=== PATIENT | female | born 1970 | race Caucasian/White ===

== ENCOUNTER → 2016-11-27 | Outpatient (CLI) | payer OTHER ==
[~2016-11-27] MED LIST: /BACL20TA; /BACL20TA OR; AMIT100T; AMIT100T OR; AMOX500C OR; BUPIVACAINE HCL 0.25% 30 ML VIAL As Ordered ONE; BUSP15TA; BUSP30TA OR; COLA100C PO; DILA100C; DILA100C OR; DILA100C PO; ECOT325T5; ECOT325T5 OR; EMLA TOP; EMLA2.5C EXT; EPI PEN; EPIP0.3I; EPIP0.3I IM; ISOS10TA2; ISOS40TA OR; ISOSORBIDE DINITRATE PO; ISOVUE-M 300 61% 15ML VIAL (Q9967) As Ordered ONE; LASI40TA PO; LIDO1DIS2 TD; LIDOCAINE 1% SDV INJ 30 ML VIAL As Ordered ONE; LIPI20TA PO; METH10TA2; METH10TA2 OR; METO50TA4 OR; METROPROLOL; MOM30SS PO; MS C15TA5; MS C15TA5 PO; NITR0.4S; NITR0.4S SL; NORT25CA2 OR; OXYC10TA56; OXYC10TA56 OR; OXYC15TA11 PO; OXYCPOW PO; PLAV75TA2; PLAV75TA2 OR; PROTPAK PO; PROZ10CA OR; ROSU10TA; ROSU10TA OR; SENO8.6T10 PO; SIMV40TA2 PO; SOMA350T; SOMA350T OR; TESS100C PO; TRIAMCINOLONE ACETONIDE SUSP 40 MG/ML VIAL (J3301) As Ordered ONE; nasal spray
--- NOTE | 2016-11-27 10:41 | REP ---
SI JOINT SERIES: Two views. HISTORY: Bilateral SI joint injection for pain. 20 seconds of fluoroscopy time is reported. FINDINGS: A sequence of two fluoroscopically obtained intraprocedural spot radiographs of the SI joints document needle position for SI joint injection procedure. Signed by Armando Taylor MD 11/27/2016 12:31 P
--- NOTE | 2016-12-03 00:01 | ECWPNPC ---
PATIENT NAME: ANGELA POLO : 1970 GENDER: FEMALE VISIT DATE: 11/27/2016 DISCHARGE DATE: 11/27/16 1033 VISIT LOCKED DATE TIME: PHYSICIAN: MADHURI SCHULTZ RESOURCE: MADHURI SCHULTZ REASON FOR APPOINTMENT 1. RIGHT SIJ CURRENT MEDICATIONS TAKING EPIPEN 0.3 MG/0.3ML (1:1000) DEVICE NEEDED INTRAMUSCULAR 1 TIME NEEDED, NOTES: YEARS AGO TAKING BACTROBAN 2 % OINTMENT 1 APPLICATION TO AFFECTED AREA EXTERNALLY 3 TIMES A DAY NEEDED, NOTES: MONTH AGO TAKING TOPIRAMATE 50 MG TABLET 1 TABLET AT BEDTIME ORALLY ONCE A DAY, NOTES: 2129 TAKING AMITRIPTYLINE HCL 150 MG TABLET 1 TABLET ORALLY AT BEDTIME, NOTES: 11/26/162129 TAKING ASPIRIN 325 MG 325 MG TABLET 1 TABLET ORALLY ONCE A DAY (DR. BYRD), NOTES: 11/26/16729 TAKING NITROSTAT 0.[address] BYRD 1 TABLET UNDER THE TONGUE SUBLINGUAL EVERY 5 MINUTES NOT TO EXCEED 3 TIMES (DR. BYRD), NOTES: NONE RECENTLY TAKING LASIX 40 MG TABLET 1 TABLET ORALLY ONCE A DAY, NOTES: 11/26/16729 TAKING ATORVASTATIN CALCIUM 40 MG TABLET 1 TABLET ORALLY ONCE A DAY, NOTES: 11/26/16729 TAKING BACLOFEN 20 MG (PAIN CENTER) TABLET 1 TABLET WITH FOOD OR MILK ORALLY FOUR TIMES A DAY NEEDED, NOTES: 11/26/162129 TAKING METHADONE HCL 10 MG TABLET 1 TABLET ORALLY Q6H MDD4 CHRONIC PAIN, NOTES: 11/27/16729 TAKING MORPHINE SULFATE 15 MG TABLET 1 TABLET ORALLY DAILY MDD1, NOTES: 11/27/16729 TAKING OXYCODONE HCL 15 MG TABLET 1 TAB(S) ORALLY Q4H PRN MDD5, NOTES: 729 TAKING METOPROLOL TARTRATE 100 MG 1 1 TABLET ORALLY ONCE A DAY, NOTES: 11/26/16729 TAKING DILANTIN 100 MG CAPSULE 2 CAPSULES ORALLY TWICE A DAY, NOTES: 11/26/162129 TAKING FLUOXETINE 20 MG CAPSULE 2 CAPSULE IN THE MORNING ORALLY ONCE A DAY, NOTES: 11/26/16729 TAKING BUSPAR 30 MG TABLET 1 TABLET BY MOUTH TWICE A DAY, NOTES: 11/26/162129 NOT-TAKING VALIUM 5 MG TABLET 2 TABLET ORALLY TAKE ON ARRIVAL TO CLINIC FOR PROCEDURE NOT-TAKING PROMETHAZINE HCL 25 MG TABLET 1 TABLET ORALLY EVERY 8 HRS PRN NAUSEA NOT-TAKING ZOLPIDEM TARTRATE 10 MG TABLET 1 TABLET AT BEDTIME NEEDED ORALLY ONCE A DAY MEDICATION LIST REVIEWED AND RECONCILED WITH THE PATIENT PAST MEDICAL HISTORY SEIZURE DISORDER HYPERCHOLESTEROLEMIA MIGRAINES HYPERTENSION BACK PAIN CARDIAC STENTS MAJOR DEPRESSION PAL ON CPAP ALLERGIES CONTRAST MEDIA: NAUSEA/VOMITING: SIDE EFFECTS ETHYLALCOHOL: SKIN IRRITATION: SIDE EFFECTS LACTOSE INTOLERANT: TONGUE SWELLING AND DIARRHEA: ALLERGY KETOROLAC: COMING OUT OF SKIN: SIDE EFFECTS ZYVOX: VOMITING, ELEV TEMP: SIDE EFFECTS SURGICAL HISTORY LEFT CARPAL TUNNEL 2003 PARTIAL HYSTERECTOMY 2005 LAPAROSCOPY 1980S TONSILLECTOMY 1986 STENT X 1 CARDIAC 2008 STENT X 4 CARDIAC 2010 RIGHT CARPAL TUNNEL AND TRIGGER RELEASE 11/20/[address] T[address] OVALLE 2012 HOSPITALIZATION/MAJOR DIAGNOSTIC PROCEDURE PANCREATITIS 2006 SURGERIES VITAL SIGNS WT 172.8 LBS, HT 63 IN, BMI 30.61 INDEX, BP 127/63 MM HG, HR 55 /MIN, RR 16 /MIN, TEMP 95.6 F, OXYGEN SAT % 97%, NA INITIALS SC 09:08, REVIEWED BY: CHACORTA. ASSESSMENTS SACROILIITIS, NOT ELSEWHERE CLASSIFIED - M46.1 (PRIMARY) PROCEDURES PN SI PRE PROCEDURE DIAGNOSIS SACROILIITIS, SACROILIAC JOINT DYSFUNCTION POST PROCEDURE DIAGNOSIS SACROILIITIS, SACROILIAC JOINT DYSFUNCTION PROCEDURE ., BILATERAL SACROILIAC JOINT BLOCK SURGEON DR. MADHURI SCHULTZ WHIRLEY OPERATOR NONE ANESTHESIA LOCAL PRE PROCEDURE NOTE PATIENT WITH HISTORY OF CHRONIC LOW BACK PAIN. I EVALUATED THE PATIENT AND REVIEWED THE CHART. I WENT OVER THE RISKS, ALTERNATIVES, AND BENEFITS ASSOCIATED WITH THIS PROCEDURE. THE PATIENT WOULD LIKE TO PROCEED AND GAVE CONSENT TO PERFORM THE PROCEDURE. THE PATIENT DENIES UNEXPLAINABLE WEIGHT LOSS, FEVER, CHILLS, OR NEW CHANGES IN URINARY OR BOWEL CONTROL DESCRIPTION OF PROCEDURE THE PATIENT WAS BROUGHT TO THE PROCEDURE ROOM AND PLACED IN THE PRONE POSITION. THE LUMBOSACRAL AREA WAS CLEANED WITH CHLORAPREP SOLUTION AND DRAPED ASEPTICALLY. THE PROCEDURE WAS DONE UNDER STERILE CONDITIONS. I CHECKED LATERALITY AND THE LEVEL WHERE THE PROCEDURE WAS GOING TO BE PERFORMED WITH THE PATIENT AND THE SUPPORTING STAFF AT THE MOMENT OF THE TIME OUT IN THE PROCEDURE ROOM. UNDER FLUOROSCOPIC GUIDANCE, TARGET POINT WAS SELECTED AT THE LOWER BORDER OF THE RIGHT AND LEFT SACROILIAC JOINT. TARGET POINT WAS SELECTED AFTER MEDIAL ROTATION AND TILT OF THE MAGNIFIER OF THE C-ARM. LIDOCAINE WAS USED TO NUMB THE SKIN AND SUBCUTANEOUS TISSUE BELOW IT. A SPINAL NEEDLE, 22-GAUGE, WAS ADVANCED UNDER FLUOROSCOPIC GUIDANCE AND FOLLOWING PATIENT FEEDBACK UNTIL THE TARGET AREA WAS TOUCHED. THE POSITION OF THE NEEDLE WAS VERIFIED WITH AP AND LATERAL VIEWS. AFTER PROPER POSITION OF THE NEEDLE WAS ACHIEVED, ISOVUE M DYE 30%, 0.25 ML, WAS INJECTED SHOWING SPREAD OF THE DYE. THEN, A SOLUTION OF 20 MG OF KENALOG WAS INJECTED IN RIGHT JOINT WITH 3 ML OF BUPIVACAINE 0.125%. THERE WAS NO EVIDENCE OF BLOOD, PARESTHESIA OR CEREBROSPINAL FLUID DURING THE PROCEDURE. THE PATIENT WAS SENT TO THE RECOVERY ROOM. THE PATIENT WAS MOVING THE EXTREMITIES AND DOING WELL. THERE WAS NO COMPLICATION DURING THE PROCEDURE. FLUOROSCOPY TIME WAS 20 SECONDS POST PROCEDURE NOTE THE PATIENT WILL BE SEEN IN A FOLLOW UP IN THE NEXT FEW WEEKS. INSTRUCTIONS WERE GIVEN, QUESTIONS WERE ANSWERED, AND THE PATIENT EXPRESSED UNDERSTANDING AND AGREED WITH THE PLAN. INSTRUCTIONS WERE GIVEN, QUESTIONS WERE ANSWERED, PATIENT REPORTS UNDERSTANDING AND AGREES WITH THE PLAN. I, TAYLOR KEENE, DOCUMENTED THE ABOVE INFORMATION ACTING A SCRIBE FOR DR. SCHULTZ. I HAVE REVIEWED THE ABOVE DOCUMENT, WRITTEN BY TAYLOR KEENE SCRIBE AND I VERIFY THAT IT IS ACCURATE. DIAGNOSTIC IM[facility] FLUORO GUIDANCE (PAIN)[id number] PROCEDURE CODES 93327 INJECT SACROILIAC JOINT 6045F RADXPS IN END [id number] PXD FOLLOW UP 3 WEEKS ELECTRONICALLY SIGNED BY MADHURI SCHULTZ MD ON 12/02/2016 AT 07:51 PM EST DISCLAIMER : THIS IS A VISIT SUMMARY EXTRACTED FROM THE [employer] CHART. IT IS NOT A COPY OF THE [employer] PROGRESS NOTE. MTDD
== END ==
LOC: M PAIN 09:10
PROVIDERS: ATTEND Anesthesiology
DX: G89.29 Other chronic pain (principal); M46.1 Sacroiliitis, not elsewhere classified; M54.5 Low back pain; Z79.891 Long term (current) use of opiate analgesic; Z79.899 Other long term (current) drug therapy; Z79.82 Long term (current) use of aspirin; Z79.2 Long term (current) use of antibiotics; Z91.041 Radiographic dye allergy status; Z88.1 Allergy status to other antibiotic agents; Z88.8 Allergy status to other drugs, medicaments and biological substances; E73.9 Lactose intolerance, unspecified; G40.89 Other seizures; E78.00 Pure hypercholesterolemia, unspecified; G43.909 Migraine, unspecified, not intractable, without status migrainosus; I10 Essential (primary) hypertension; Z98.890 Other specified postprocedural states; F32.9 Major depressive disorder, single episode, unspecified; G47.30 Sleep apnea, unspecified
CPT/HCPCS: G0260; J3301

== ENCOUNTER → 2016-12-25 | Outpatient (CLI) | payer OTHER ==
[~2016-12-25] MED LIST changes: -BUPIVACAINE HCL 0.25% 30 ML VIAL As Ordered ONE; -ISOVUE-M 300 61% 15ML VIAL (Q9967) As Ordered ONE; -LIDOCAINE 1% SDV INJ 30 ML VIAL As Ordered ONE; -TRIAMCINOLONE ACETONIDE SUSP 40 MG/ML VIAL (J3301) As Ordered ONE
--- NOTE | 2016-12-26 00:59 | ECWPNPC ---
PATIENT NAME: ANGELA POLO : 1970 GENDER: FEMALE VISIT DATE: 12/25/2016 DISCHARGE DATE: 12/25/16 1053 VISIT LOCKED DATE TIME: PHYSICIAN: CHEN FRANCISCO RESOURCE: CHEN FRANCISCO REASON FOR APPOINTMENT 1. POST PROCEDURE, BACK HISTORY OF PRESENT ILLNESS HISTORY OF PRESENT ILLNESS: PAIN THE PATIENT DESCRIBES THE PAIN... FALL RISK SCREENING: SCREENING :NO FALLS IN THE PAST YEAR TODAY'S VISIT: NOTES: RATES PAIN TODAY 06/06. IS S/P BILATERAL SIJ INJECTION ON 11/27/16 WHICH PRODUCED 50-60% PAIN RELIEF FOR 3 WEEKS. STATES SHE WAS DOING WELL UNTIL 12:30 LAST NIGHT. NOTES A THROBBING PAIN ACROSS THE LOW BACK.. CURRENT MEDICATIONS TAKING EPIPEN 0.3 MG/0.3ML (1:1000) DEVICE NEEDED INTRAMUSCULAR 1 TIME NEEDED TAKING BACTROBAN 2 % OINTMENT 1 APPLICATION TO AFFECTED AREA EXTERNALLY 3 TIMES A DAY NEEDED TAKING TOPIRAMATE 50 MG TABLET 1 TABLET AT BEDTIME ORALLY ONCE A DAY TAKING AMITRIPTYLINE HCL 150 MG TABLET 1 TABLET ORALLY AT BEDTIME TAKING ASPIRIN 325 MG 325 MG TABLET 1 TABLET ORALLY ONCE A DAY (DR. BYRD) TAKING NITROSTAT 0.[address] BYRD 1 TABLET UNDER THE TONGUE SUBLINGUAL EVERY 5 MINUTES NOT TO EXCEED 3 TIMES (DR. BYRD) TAKING ATORVASTATIN CALCIUM 40 MG TABLET 1 TABLET ORALLY ONCE A DAY TAKING BACLOFEN 20 MG (PAIN CENTER) TABLET 1 TABLET WITH FOOD OR MILK ORALLY FOUR TIMES A DAY NEEDED TAKING METOPROLOL TARTRATE 100 MG 1 1 TABLET ORALLY ONCE A DAY TAKING DILANTIN 100 MG CAPSULE 2 CAPSULES ORALLY TWICE A DAY TAKING FLUOXETINE 20 MG CAPSULE 2 CAPSULE IN THE MORNING ORALLY ONCE A DAY TAKING BUSPAR 30 MG TABLET 1 TABLET BY MOUTH TWICE A DAY TAKING LASIX 40 MG TABLET 1 TABLET ORALLY ONCE A DAY TAKING METHADONE HCL 10 MG TABLET 1 TABLET ORALLY Q6H MDD4 CHRONIC PAIN TAKING MORPHINE SULFATE 15 MG TABLET 1 TABLET ORALLY DAILY MDD1 TAKING OXYCODONE HCL 15 MG TABLET 1 TAB(S) ORALLY Q4H PRN MDD5 NOT-TAKING VALIUM 5 MG TABLET 2 TABLET ORALLY TAKE ON ARRIVAL TO CLINIC FOR PROCEDURE NOT-TAKING PROMETHAZINE HCL 25 MG TABLET 1 TABLET ORALLY EVERY 8 HRS PRN NAUSEA NOT-TAKING ZOLPIDEM TARTRATE 10 MG TABLET 1 TABLET AT BEDTIME NEEDED ORALLY ONCE A DAY MEDICATION LIST REVIEWED AND RECONCILED WITH THE PATIENT PAST MEDICAL HISTORY SEIZURE DISORDER HYPERCHOLESTEROLEMIA MIGRAINES HYPERTENSION BACK PAIN CARDIAC STENTS MAJOR DEPRESSION PAL ON CPAP ALLERGIES CONTRAST MEDIA: NAUSEA/VOMITING: SIDE EFFECTS ETHYLALCOHOL: SKIN IRRITATION: SIDE EFFECTS LACTOSE INTOLERANT: TONGUE SWELLING AND DIARRHEA: ALLERGY KETOROLAC: COMING OUT OF SKIN: SIDE EFFECTS ZYVOX: VOMITING, ELEV TEMP: SIDE EFFECTS SOCIAL HISTORY GENERAL: TOBACCO USE ARE YOU A:NONSMOKER LEARNING BARRIERS / SPECIAL NEEDS ORIENTED TO PLAN OF CARE: PATIENT, PAIN MANAGEMENT PATIENT, ORIENTED TO PLAN OF CARE: PATIENT, PAIN MANAGEMENT PATIENT. NEW PATIENT PAIN DIARY TODAY'S VISITNOTES FROM 0-10, WHAT LEVEL IS YOUR PAIN TODAY?0 PAIN CLINIC PFS, CLERGY, PUBLIC HEALTH REFERRALS PFS REFERRAL NEEDED?NO CLERGY REFERRAL NEEDED?NO PUBLIC HEALTH REFERRAL NEEDED?NO WAS THE PROVIDER NOTIFIED OF ANY PERTINENT INFO?NO PFS REFERRAL NEEDED?NO CLERGY REFERRAL NEEDED?NO PUBLIC HEALTH REFERRAL NEEDED?NO WAS THE PROVIDER NOTIFIED OF ANY PERTINENT INFO?NO REVIEW OF SYSTEMS CONSTITUTIONAL: ANY CHANGE IN YOUR MEDICAL CONDITION? NO . CHILLS NO . FEVER NO . INFECTION: DO YOU HAVE NEW INFECTIONS? NO . DO YOU HAVE HISTORY OF MRSA? NO . MUSCULOSKELETAL: ANY NEW PATTERNS OF PAIN OR NUMBNESS? NO . GASTROENTEROLOGY: ANY NEW CHANGE IN BOWEL CONTROL? NO . GENITOURINARY: ANY NEW CHANGE IN BLADDER CONTROL? NO . IS THERE A CHANCE YOU COULD BE ? NO . HEMATOLOGY/LYMPH: DO YOU TAKE ANY BLOOD THINNERS? (FOR EXAMPLE- COUMADIN, PLAVIX, AGGRENOX, PLATEL, PRADAXA, OR XARELTO) NO . WHEN WAS YOUR LAST DOSE? DATE: TIME: . NEUROLOGY: HAVE YOU FALLEN IN THE PAST 6 MONTHS? YES . ANY NEW SEIZURES? NO RECENT SEIZURES . ANY NEW EXTREMITY NUMBNESS OR WEAKNESS? NO . CARDIOLOGY: DO YOU HAVE A PACEMAKER OR DEFIBRILLATOR? NO . RESPIRATORY: HAVE YOU BEEN SICK IN THE PAST WEEK? NO . FEVER NO . FLU LIKE SYMPTOMS? NO . COUGH NO . INTEGUMENTARY: DO YOU HAVE ANY RASHES OR OPEN SORES? NO . ALLERGIC/IMMUNO: ARE YOU ALLERGIC TO SHELLFISH OR IV DYE? YES . ANY NEW ALLERGIES? NO . PSYCHIATRIC: DO YOU HAVE THOUGHTS OF HURTING YOURSELF OR SOMEONE ELSE? NO . ARE YOU ABUSED, NEGLECTED, OR IN AN UNSAFE ENVIRONMENT? NO . ENDOCRINOLOGY: ARE YOU DIABETIC? NO . OTHER: DO YOU NEED ANY PRESCRIPTIONS? NO . IF YES, PLEASE LIST: ____ . ANY NEW PROBLEMS WITH YOUR MEDICATIONS? NO . WHEN DID YOU LAST EAT? ____ . WHEN DID YOU LAST DRINK? ____ . WHAT DID YOU LAST DRINK? ____ . NAME OF PERSON DRIVING YOU HOME? ____ . DO YOU HAVE ANY OTHER QUESTIONS OR CONCERNS NO . REVIEWED BY: PROVIDER: CHEN MOORE . VITAL SIGNS WT 172.4 LBS, HT 63 IN, BMI 30.54 INDEX, BP 150/90 MM HG, HR 58 /MIN, RR 16 /MIN, TEMP 97.3 F, OXYGEN SAT % 98%, NA INITIALS SC 10:12. EXAMINATION GENERAL EXAMINATION: PSYCHALERT , ORIENTED X 3 , APPROPRIATE MOOD AND AFFECT . LUNGS:CLEAR TO AUSCULTATION BILATERALLY. HEART:HEART RATE REGULAR. MUSCULOSKELETAL:MUSCLE STRENGTH TESTING 5/5 BILATERAL LOWER EXTREMITIES. , TRIGGER POINTS AND TIGHT FIBROUS BANDS ACROSS LUMBOSACRAL SPINE. POINT TENDERNESS OVER LUMBAR SPINOUS PROCESSES AND ACROSS THE BILATERAL SACRALILIAC JOINTS. CANE USED FOR BALANCE. GAIT ANTALGIC. NO FOCAL WEAKNESS IN LOWER EXTREMITIES. ASSESSMENTS LUMBAR POST-LAMINECTOMY SYNDROME - M96.1 (PRIMARY) LUMBAR RADICULOPATHY - M54.16 CHRONIC PRESCRIPTION OPIATE USE - Z79.899 TREATMENT LUMBAR POST-LAMINECTOMY SYNDROME NOTES: ICE TO LOW BACK TODAY. UTOX TODAYCALL WHEN MEDS DUECALL BUREAU OF NARCOTIC ENFORCEMENT IF NARCOTIC COUNT FROM PHARMACY IS NOT RIGHT. PROCEDURE CODES FA211 ESTABILISHED PATIENT [facility] CHARGE DISPOSITION & COMMUNICATION FOLLOW UP 7 WEEKS ELECTRONICALLY SIGNED BY ROSIE PALMER ON 12/25/2016 AT 11:53 AM EST DISCLAIMER : THIS IS A VISIT SUMMARY EXTRACTED FROM THE [employer] CHART. IT IS NOT A COPY OF THE [employer] PROGRESS NOTE. SHIN
== END ==
LOC: M PAIN 09:40
PROVIDERS: ATTEND Nurse Practitioner Family
DX: Z09 Encounter for follow-up examination after completed treatment for conditions other than malignant neoplasm (principal); G89.29 Other chronic pain; M96.1 Postlaminectomy syndrome, not elsewhere classified; M54.16 Radiculopathy, lumbar region; I11.9 Hypertensive heart disease without heart failure; I25.10 Atherosclerotic heart disease of native coronary artery without angina pectoris; G40.401 Other generalized epilepsy and epileptic syndromes, not intractable, with status epilepticus; E78.5 Hyperlipidemia, unspecified; G43.709 Chronic migraine without aura, not intractable, without status migrainosus; F33.0 Major depressive disorder, recurrent, mild; G47.33 Obstructive sleep apnea (adult) (pediatric); E66.9 Obesity, unspecified; Z68.30 Body mass index [BMI] 30.0-30.9, adult; Z91.041 Radiographic dye allergy status; Z88.8 Allergy status to other drugs, medicaments and biological substances; E73.9 Lactose intolerance, unspecified; F11.20 Opioid dependence, uncomplicated; Z79.891 Long term (current) use of opiate analgesic; Z79.82 Long term (current) use of aspirin; Z79.899 Other long term (current) drug therapy; Z95.5 Presence of coronary angioplasty implant and graft

== ENCOUNTER → 2017-01-01 | Outpatient (REF) | payer OTHER ==
[2017-01-01 12:20] LABS: ALKALINE PHOSPHATASE 170 U/L (45-117); ALT/SGPT 30 U/L (12-78); ANION GAP 6 MEQ/L (8-16); AST/SGOT 21 U/L (15-37); BLOOD UREA NITROGEN 15 MG/DL (7-18); CALCIUM LEVEL 8.7 MG/DL (8.5-10.1); CARBON DIOXIDE LEVEL 29 MEQ/L (21-32); CHLORIDE LEVEL 107 MEQ/L (98-107); CREATININE FOR GFR 0.97 MG/DL (0.55-1.02); GLOMERULAR FILTRATION RATE > 60.0 (>58); GLUCOSE, FASTING 98 MG/DL (70-105); POTASSIUM SERUM 4.3 MEQ/L (3.5-5.1); SODIUM LEVEL 142 MEQ/L (136-145)
[2017-01-01 12:21] LABS: ALBUMIN 3.7 GM/DL (3.2-5.2); ALBUMIN/GLOBULIN RATIO 1.19 (1.00-1.93); BILIRUBIN,TOTAL 0.2 MG/DL (0.2-1.0); CHOLESTEROL LEVEL 185 MG/DL (<200); TOTAL PROTEIN 6.8 GM/DL (6.4-8.2); TRIGLYCERIDES LEVEL 64 MG/DL (<150)
== END ==
LOC: M SFHCPLAZ 08:28
PROVIDERS: ATTEND Family Medicine
DX: I10 Essential (primary) hypertension (principal); E78.5 Hyperlipidemia, unspecified; F33.0 Major depressive disorder, recurrent, mild

== ENCOUNTER → 2017-01-11 | Outpatient (CLI) | payer OTHER ==
--- NOTE | 2017-01-11 19:07 | REP ---
CT study of the abdomen and pelvis without IV or oral contrast: Renal stone protocol. History: Right-sided flank pain. Question stone. Comparison CT study is from June 26, 2008. CT findings: Preliminary digital medical billing manager radiograph demonstrates an unremarkable bowel gas pattern. The lung bases are clear. There is no evidence of pleural effusion or upper abdominal ascites. There is fairly prominent vascular calcification in this relatively young patient. The liver is normal in size and homogeneous in texture. Spleen is unremarkable. No adrenal lesion is seen on either side. There is a cyst in the midpole of the left kidney anterior cortex measuring 1.5 cm in greatest diameter. There is no evidence of hydronephrosis or intrarenal calculus on either side. Pancreas is unremarkable. The gallbladder is small and contracted. A surgical clip is seen in the right lower abdomen. Some sutures are visible in the right pelvis post hysterectomy. Urinary bladder is intact. A normal appendix is seen in the right pelvis. Small and large intestinal bowel loops are unremarkable. No free fluid is seen. No abdominal wall defect is observed. No bony destructive lesion is seen. Impression: Fairly prominent vascular calcification. Status post hysterectomy. Otherwise negative. Signed by Armando Taylor MD 01/11/2017 07:51 P
== END ==
LOC: M RAD 18:07
PROVIDERS: ATTEND Student in an Organized Health Care Education/Training Program
DX: M54.9 Dorsalgia, unspecified (principal)

== ENCOUNTER → 2017-02-28 | Outpatient (CLI) | payer OTHER ==
[~2017-02-28] MED LIST changes: -COLA100C PO; +COLA100C3 PO
--- NOTE | 2017-03-01 00:04 | ECWPNPC ---
PATIENT NAME: ANGELA POLO : 1970 GENDER: FEMALE VISIT DATE: 02/28/2017 DISCHARGE DATE: 02/28/17 1039 VISIT LOCKED DATE TIME: PHYSICIAN: CHEN FRNACISCO RESOURCE: CHEN FRANCISCO HISTORY OF PRESENT ILLNESS HISTORY OF PRESENT ILLNESS: PAIN THE PATIENT DESCRIBES THE PAIN... FALL RISK SCREENING: SCREENING :NO FALLS IN THE PAST YEAR TODAY'S VISIT: NOTES: RATES PAIN TODAY 6/10 ACROSS THE LOW BACK AND RADIATES DOWN BOTH LEGS. DOES EXERCISES DAILY WHICH HELP KEEP PAIN UNDER CONTROL. HAD RECENT FALL WITH NO CHANGES IN OVRALL BACK PAIN OR FUNCTION. DESCRIBES PAIN CONSTANT, ACHING AND TENDER. . CURRENT MEDICATIONS TAKING ERGOCALCIFEROL 75141 IU TABLET DIRECTED ORALLY WEEKLY TAKING AMITRIPTYLINE HCL 150 MG TABLET 1 TABLET ORALLY AT BEDTIME TAKING TOPIRAMATE 50 MG TABLET 1 TABLET AT BEDTIME ORALLY ONCE A DAY TAKING EPIPEN 0.3 MG/0.3ML (1:1000) DEVICE NEEDED INTRAMUSCULAR 1 TIME NEEDED TAKING BACTROBAN 2 % OINTMENT 1 APPLICATION TO AFFECTED AREA EXTERNALLY 3 TIMES A DAY NEEDED TAKING ASPIRIN 325 MG 325 MG TABLET 1 TABLET ORALLY ONCE A DAY (DR. BYRD) TAKING NITROSTAT 0.[address] BYRD 1 TABLET UNDER THE TONGUE SUBLINGUAL EVERY 5 MINUTES NOT TO EXCEED 3 TIMES (DR. BYRD) TAKING ATORVASTATIN CALCIUM 40 MG TABLET 1 TABLET ORALLY ONCE A DAY TAKING BACLOFEN 20 MG (PAIN CENTER) TABLET 1 TABLET WITH FOOD OR MILK ORALLY FOUR TIMES A DAY NEEDED TAKING METOPROLOL TARTRATE 100 MG 1 1 TABLET ORALLY ONCE A DAY TAKING DILANTIN 100 MG CAPSULE 2 CAPSULES ORALLY TWICE A DAY TAKING FLUOXETINE 20 MG CAPSULE 2 CAPSULE IN THE MORNING ORALLY ONCE A DAY TAKING BUSPAR 30 MG TABLET 1 TABLET BY MOUTH TWICE A DAY TAKING LASIX 40 MG TABLET 1 TABLET ORALLY ONCE A DAY TAKING PROMETHAZINE HCL 25 MG TABLET 1 TABLET ORALLY EVERY 8 HRS PRN NAUSEA TAKING ZOLPIDEM TARTRATE 10 MG TABLET 1 TABLET AT BEDTIME NEEDED ORALLY ONCE A DAY TAKING METHADONE HCL 10 MG TABLET 1 TABLET ORALLY Q6H MDD4 CHRONIC PAIN TAKING OXYCODONE HCL 15 MG TABLET 1 TAB(S) ORALLY Q4H PRN MDD5 NOT-TAKING VALIUM 5 MG TABLET 2 TABLET ORALLY TAKE ON ARRIVAL TO CLINIC FOR PROCEDURE NOT-TAKING MORPHINE SULFATE 15 MG TABLET 1 TABLET ORALLY DAILY MDD1 MEDICATION LIST REVIEWED AND RECONCILED WITH THE PATIENT PAST MEDICAL HISTORY SEIZURE DISORDER HYPERCHOLESTEROLEMIA MIGRAINES HYPERTENSION BACK PAIN CAD W/ STENTING MAJOR DEPRESSION PAL ON CPAP HISTORY OF SVT GENERALIZED ANXIETY DISORDER DEPRESSION VITAMIN D DEFICIENCY ALLERGIES CONTRAST MEDIA: NAUSEA/VOMITING: SIDE EFFECTS ETHYLALCOHOL: SKIN IRRITATION: SIDE EFFECTS LACTOSE INTOLERANT: TONGUE SWELLING AND DIARRHEA: ALLERGY KETOROLAC: COMING OUT OF SKIN: SIDE EFFECTS ZYVOX: VOMITING, ELEV TEMP: SIDE EFFECTS REVIEW OF SYSTEMS CONSTITUTIONAL: ANY CHANGE IN YOUR MEDICAL CONDITION? NO . CHILLS NO . FEVER NO . INFECTION: DO YOU HAVE NEW INFECTIONS? NO . DO YOU HAVE HISTORY OF MRSA? NO . MUSCULOSKELETAL: ANY NEW PATTERNS OF PAIN OR NUMBNESS? NO . GASTROENTEROLOGY: ANY NEW CHANGE IN BOWEL CONTROL? NO . GENITOURINARY: ANY NEW CHANGE IN BLADDER CONTROL? NO . IS THERE A CHANCE YOU COULD BE ? NO . HEMATOLOGY/LYMPH: DO YOU TAKE ANY BLOOD THINNERS? (FOR EXAMPLE- COUMADIN, PLAVIX, AGGRENOX, PLATEL, PRADAXA, OR XARELTO) NO . WHEN WAS YOUR LAST DOSE? DATE: TIME: . NEUROLOGY: HAVE YOU FALLEN IN THE PAST 6 MONTHS? YES . ANY NEW SEIZURES? NO . ANY NEW EXTREMITY NUMBNESS OR WEAKNESS? NO . CARDIOLOGY: DO YOU HAVE A PACEMAKER OR DEFIBRILLATOR? NO . CHEST PAIN PATIENT DENIES . RESPIRATORY: HAVE YOU BEEN SICK IN THE PAST WEEK? NO . FEVER NO . FLU LIKE SYMPTOMS? NO . COUGH NO . INTEGUMENTARY: DO YOU HAVE ANY RASHES OR OPEN SORES? NO . ALLERGIC/IMMUNO: ARE YOU ALLERGIC TO SHELLFISH OR IV DYE? YES, IV DYE . ANY NEW ALLERGIES? NO . PSYCHIATRIC: DO YOU HAVE THOUGHTS OF HURTING YOURSELF OR SOMEONE ELSE? NO . ARE YOU ABUSED, NEGLECTED, OR IN AN UNSAFE ENVIRONMENT? NO . ENDOCRINOLOGY: ARE YOU DIABETIC? NO . OTHER: DO YOU NEED ANY PRESCRIPTIONS? NO . IF YES, PLEASE LIST: ____ . ANY NEW PROBLEMS WITH YOUR MEDICATIONS? NO . WHEN DID YOU LAST EAT? ____ . WHEN DID YOU LAST DRINK? ____ . WHAT DID YOU LAST DRINK? ____ . NAME OF PERSON DRIVING YOU HOME? ____ . DO YOU HAVE ANY OTHER QUESTIONS OR CONCERNS NO . EYES: VISION CHANGES RECENTLY BBROKE GLSSES - USING OLD GLASSES AND THIS IS PRODUCING HEADACHE AND EYE STRAIN . REVIEWED BY: PROVIDER: CHEN MOORE . VITAL SIGNS WT 175 LBS, HT 63 IN, BMI 31.00 INDEX, BP 150/69 MM HG, HR 54 /MIN, RR 16 /MIN, TEMP 98.3 F, OXYGEN SAT % 97%, NA INITIALS SC 10:07, REVIEWED BY: CS. EXAMINATION GENERAL EXAMINATION: PSYCHALERT , ORIENTED X 3 , APPROPRIATE MOOD AND AFFECT . LUNGS:CLEAR TO AUSCULTATION BILATERALLY. HEART:HEART RATE REGULAR. MUSCULOSKELETAL:MUSCLE STRENGTH TESTING 5/5 BILATERAL LOWER EXTREMITIES. , TRIGGER POINTS AND TIGHT FIBROUS BANDS ACROSS LUMBOSACRAL SPINE. POINT TENDERNESS OVER LUMBAR SPINOUS PROCESSES AND ACROSS THE BILATERAL SACRALILIAC JOINTS. CANE USED FOR BALANCE. GAIT ANTALGIC. NO FOCAL WEAKNESS IN LOWER EXTREMITIES. ASSESSMENTS LUMBAR POST-LAMINECTOMY SYNDROME - M96.1 (PRIMARY) LUMBAR RADICULOPATHY - M54.16 CHRONIC PRESCRIPTION OPIATE USE - Z79.899 TREATMENT LUMBAR POST-LAMINECTOMY SYNDROME NOTES: CONTINUE CURRENT MEDS. CONTINUE WALKING, EXERCISES AND STRETCHESCONTINUE TO COUNT MEDS AT PHARMACYCALL WHEN SCRIPTS DUE. CLINICAL NOTES: ISTOP REGISTRY REVIEWED AND DEMNOSTRATES COMPLLIANCE. BRINGS IN MEDICATIONS WHICH IS APPROPRIATE FOR WHAT WAS DISPENSED. RECENT URINE TOXICOLOGY REVIEWED. NO UNAUTHORIZED MEDICATIONS. NO ILLICIT SUBSTANCES AND PRESCRIBED MEDICATIONS WERE PRESENT. PROCEDURE CODES FA211 ESTABILISHED PATIENT [facility] FACILITY CHARGE DISPOSITION & COMMUNICATION FOLLOW UP 7 WEEKS ELECTRONICALLY SIGNED BY ROSIE PALMER ON 02/28/2017 AT 01:20 PM EDT DISCLAIMER : THIS IS A VISIT SUMMARY EXTRACTED FROM THE [employer] CHART. IT IS NOT A COPY OF THE [employer] PROGRESS NOTE. MTDD
== END ==
LOC: M PAIN 09:40
PROVIDERS: ATTEND Nurse Practitioner Family
DX: M96.1 Postlaminectomy syndrome, not elsewhere classified (principal); M54.16 Radiculopathy, lumbar region; G40.919 Epilepsy, unspecified, intractable, without status epilepticus; E78.00 Pure hypercholesterolemia, unspecified; G43.909 Migraine, unspecified, not intractable, without status migrainosus; I10 Essential (primary) hypertension; I25.10 Atherosclerotic heart disease of native coronary artery without angina pectoris; F32.9 Major depressive disorder, single episode, unspecified; G47.33 Obstructive sleep apnea (adult) (pediatric); F41.1 Generalized anxiety disorder; E55.9 Vitamin D deficiency, unspecified; Z91.041 Radiographic dye allergy status; Z91.048 Other nonmedicinal substance allergy status; E73.9 Lactose intolerance, unspecified; Z88.8 Allergy status to other drugs, medicaments and biological substances; Z79.82 Long term (current) use of aspirin; Z79.899 Other long term (current) drug therapy

== ENCOUNTER → 2017-04-16 | Outpatient (CLI) | payer OTHER ==
[~2017-04-16] MED LIST changes: -COLA100C3 PO; +COLA100C5 PO
== END ==
LOC: M PAIN 10:40
PROVIDERS: ATTEND Nurse Practitioner Family
DX: Z53.29 Procedure and treatment not carried out because of patient's decision for other reasons (principal)

== ENCOUNTER → 2017-05-03 | Outpatient (CLI) | payer OTHER ==
--- NOTE | 2017-05-31 01:28 | ECWPNPC ---
PATIENT NAME: ANGELA POLO : 1970 GENDER: FEMALE VISIT DATE: 05/03/2017 DISCHARGE DATE: 05/03/17 1158 VISIT LOCKED DATE TIME: PHYSICIAN: CHEN FRANCISCO RESOURCE: CHEN FRANCISCO HISTORY OF PRESENT ILLNESS HISTORY OF PRESENT ILLNESS: PAIN THE PATIENT DESCRIBES THE PAIN... FALL RISK SCREENING: SCREENING :NO FALLS IN THE PAST YEAR TODAY'S VISIT: NOTES: RATES PAIN TODAY 01/04.STATES HAS INCREASED EXERCISE, WALKING AND STRETCHES. THIS PLUS HER CURRENT MEDS ARE WORKING WELL.. CURRENT MEDICATIONS TAKING ERGOCALCIFEROL 15783 IU TABLET DIRECTED ORALLY WEEKLY TAKING AMITRIPTYLINE HCL 150 MG TABLET 1 TABLET ORALLY AT BEDTIME TAKING TOPIRAMATE 50 MG TABLET 1 TABLET AT BEDTIME ORALLY ONCE A DAY TAKING EPIPEN 0.3 MG/0.3ML (1:1000) DEVICE NEEDED INTRAMUSCULAR 1 TIME NEEDED TAKING BACTROBAN 2 % OINTMENT 1 APPLICATION TO AFFECTED AREA EXTERNALLY 3 TIMES A DAY NEEDED TAKING ASPIRIN 325 MG 325 MG TABLET 1 TABLET ORALLY ONCE A DAY (DR. BYRD) TAKING NITROSTAT 0.[address] BYRD 1 TABLET UNDER THE TONGUE SUBLINGUAL EVERY 5 MINUTES NOT TO EXCEED 3 TIMES (DR. BYRD) TAKING DILANTIN 100 MG CAPSULE 2 CAPSULES ORALLY TWICE A DAY TAKING FLUOXETINE 20 MG CAPSULE 2 CAPSULE IN THE MORNING ORALLY ONCE A DAY TAKING BUSPAR 30 MG TABLET 1 TABLET BY MOUTH TWICE A DAY TAKING LASIX 40 MG TABLET 1 TABLET ORALLY ONCE A DAY TAKING PROMETHAZINE HCL 25 MG TABLET 1 TABLET ORALLY EVERY 8 HRS PRN NAUSEA TAKING ZOLPIDEM TARTRATE 10 MG TABLET 1 TABLET AT BEDTIME NEEDED ORALLY ONCE A DAY TAKING METOPROLOL TARTRATE 100 MG 1 1 TABLET ORALLY ONCE A DAY TAKING METHADONE HCL 10 MG TABLET 1 TABLET ORALLY Q6H MDD4 CHRONIC PAIN TAKING BACLOFEN 20 MG (PAIN CENTER) TABLET 1 TABLET WITH FOOD OR MILK ORALLY FOUR TIMES A DAY NEEDED TAKING OXYCODONE HCL 15 MG TABLET 1 TAB(S) ORALLY Q4H PRN MDD5 TAKING ATORVASTATIN CALCIUM 40 MG TABLET 1 TABLET ORALLY ONCE A DAY NOT-TAKING VALIUM 5 MG TABLET 2 TABLET ORALLY TAKE ON ARRIVAL TO CLINIC FOR PROCEDURE NOT-TAKING MORPHINE SULFATE 15 MG TABLET 1 TABLET ORALLY DAILY MDD1 MEDICATION LIST REVIEWED AND RECONCILED WITH THE PATIENT PAST MEDICAL HISTORY SEIZURE DISORDER HYPERCHOLESTEROLEMIA MIGRAINES HYPERTENSION BACK PAIN CAD W/ STENTING MAJOR DEPRESSION PAL ON CPAP HISTORY OF SVT GENERALIZED ANXIETY DISORDER DEPRESSION VITAMIN D DEFICIENCY ALLERGIES CONTRAST MEDIA: NAUSEA/VOMITING: SIDE EFFECTS ETHYLALCOHOL: SKIN IRRITATION: SIDE EFFECTS LACTOSE INTOLERANT: TONGUE SWELLING AND DIARRHEA: ALLERGY KETOROLAC: COMING OUT OF SKIN: SIDE EFFECTS ZYVOX: VOMITING, ELEV TEMP: SIDE EFFECTS REVIEW OF SYSTEMS REVIEWED BY: PROVIDER: CHEN MOORE . CONSTITUTIONAL: ANY CHANGE IN YOUR MEDICAL CONDITION? NO . CHILLS NO . FEVER NO . INFECTION: DO YOU HAVE NEW INFECTIONS? NO . DO YOU HAVE HISTORY OF MRSA? NO . MUSCULOSKELETAL: ANY NEW PATTERNS OF PAIN OR NUMBNESS? NO . GASTROENTEROLOGY: ANY NEW CHANGE IN BOWEL CONTROL? NO . GENITOURINARY: ANY NEW CHANGE IN BLADDER CONTROL? NO . IS THERE A CHANCE YOU COULD BE ? NO . HEMATOLOGY/LYMPH: DO YOU TAKE ANY BLOOD THINNERS? (FOR EXAMPLE- COUMADIN, PLAVIX, AGGRENOX, PLATEL, PRADAXA, OR XARELTO) NO . WHEN WAS YOUR LAST DOSE? DATE: TIME: . NEUROLOGY: HAVE YOU FALLEN IN THE PAST 6 MONTHS? NO . ANY NEW EXTREMITY NUMBNESS OR WEAKNESS? NO . CARDIOLOGY: DO YOU HAVE A PACEMAKER OR DEFIBRILLATOR? NO . RESPIRATORY: HAVE YOU BEEN SICK IN THE PAST WEEK? YES, TAKEN 2 WEEKS TO GET WELL /DIARRHEA THROWING UP . FEVER NO . FLU LIKE SYMPTOMS? NO . COUGH NO . INTEGUMENTARY: DO YOU HAVE ANY RASHES OR OPEN SORES? NO . ALLERGIC/IMMUNO: ARE YOU ALLERGIC TO SHELLFISH OR IV DYE? YES, IV DYE . ANY NEW ALLERGIES? NO . PSYCHIATRIC: DO YOU HAVE THOUGHTS OF HURTING YOURSELF OR SOMEONE ELSE? NO . ARE YOU ABUSED, NEGLECTED, OR IN AN UNSAFE ENVIRONMENT? NO . ENDOCRINOLOGY: ARE YOU DIABETIC? NO . OTHER: DO YOU NEED ANY PRESCRIPTIONS? NO . IF YES, PLEASE LIST: ____ . ANY NEW PROBLEMS WITH YOUR MEDICATIONS? NO . WHEN DID YOU LAST EAT? ____ . WHEN DID YOU LAST DRINK? ____ . WHAT DID YOU LAST DRINK? ____ . NAME OF PERSON DRIVING YOU HOME? ____ . DO YOU HAVE ANY OTHER QUESTIONS OR CONCERNS NO . VITAL SIGNS WT 175 LBS, HT 63 IN, BMI 31.00 INDEX. EXAMINATION GENERAL EXAMINATION: PSYCHALERT , ORIENTED X 3 , APPROPRIATE MOOD AND AFFECT . LUNGS:CLEAR TO AUSCULTATION BILATERALLY. HEART:HEART RATE REGULAR, RATE SLOW - 50 BPM. MUSCULOSKELETAL:MUSCLE STRENGTH TESTING 5/5 BILATERAL LOWER EXTREMITIES. , TRIGGER POINTS AND TIGHT FIBROUS BANDS ACROSS LUMBOSACRAL SPINE. POINT TENDERNESS OVER LUMBAR SPINOUS PROCESSES AND ACROSS THE BILATERAL SACRALILIAC JOINTS. CANE USED FOR BALANCE. GAIT ANTALGIC. NO FOCAL WEAKNESS IN LOWER EXTREMITIES. ASSESSMENTS LUMBAR POST-LAMINECTOMY SYNDROME - M96.1 (PRIMARY) LUMBAR RADICULOPATHY - M54.16 CHRONIC PRESCRIPTION OPIATE USE - Z79.899 TREATMENT LUMBAR POST-LAMINECTOMY SYNDROME NOTES: CALL NEXT WEEK FOR REFILLS. CONTINUE EXERCISES AND STRETCHES. CLINICAL NOTES: ISTOP REGISTRY REVIEWED AND DEMNOSTRATES COMPLLIANCE. BRINGS IN MEDICATIONS WHICH IS APPROPRIATE FOR WHAT WAS DISPENSED. RECENT URINE TOXICOLOGY REVIEWED. NO UNAUTHORIZED MEDICATIONS. NO ILLICIT SUBSTANCES AND PRESCRIBED MEDICATIONS WERE PRESENT. PROCEDURE CODES FA211 ESTABILISHED PATIENT [facility] CHARGE DISPOSITION & COMMUNICATION FOLLOW UP END MAY (REASON: BACK PAIN) ELECTRONICALLY SIGNED BY ROSIE PALMER ON 05/30/2017 AT 08:16 AM EDT DISCLAIMER : THIS IS A VISIT SUMMARY EXTRACTED FROM THE [employer] CHART. IT IS NOT A COPY OF THE [employer] PROGRESS NOTE. SHIN
== END ==
LOC: M PAIN 10:40
PROVIDERS: ATTEND Nurse Practitioner Family
DX: M96.1 Postlaminectomy syndrome, not elsewhere classified (principal); M54.16 Radiculopathy, lumbar region; G40.919 Epilepsy, unspecified, intractable, without status epilepticus; E78.5 Hyperlipidemia, unspecified; G43.709 Chronic migraine without aura, not intractable, without status migrainosus; G47.33 Obstructive sleep apnea (adult) (pediatric); I25.10 Atherosclerotic heart disease of native coronary artery without angina pectoris; E55.9 Vitamin D deficiency, unspecified; F33.0 Major depressive disorder, recurrent, mild; I11.9 Hypertensive heart disease without heart failure; E66.09 Other obesity due to excess calories; Z91.041 Radiographic dye allergy status; Z88.3 Allergy status to other anti-infective agents; E73.9 Lactose intolerance, unspecified; Z88.8 Allergy status to other drugs, medicaments and biological substances; Z79.82 Long term (current) use of aspirin; F11.20 Opioid dependence, uncomplicated; Z79.899 Other long term (current) drug therapy

== ENCOUNTER → 2017-06-26 | Outpatient (CLI) | payer OTHER ==
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
== END ==
LOC: M PAIN 11:00
PROVIDERS: ATTEND Nurse Practitioner Family
DX: M54.16 Radiculopathy, lumbar region (principal); M96.1 Postlaminectomy syndrome, not elsewhere classified; I10 Essential (primary) hypertension; E78.5 Hyperlipidemia, unspecified; I25.10 Atherosclerotic heart disease of native coronary artery without angina pectoris; G40.401 Other generalized epilepsy and epileptic syndromes, not intractable, with status epilepticus; G43.709 Chronic migraine without aura, not intractable, without status migrainosus; G47.33 Obstructive sleep apnea (adult) (pediatric); Z79.82 Long term (current) use of aspirin; Z79.891 Long term (current) use of opiate analgesic; Z79.899 Other long term (current) drug therapy; Z91.041 Radiographic dye allergy status; Z91.018 Allergy to other foods; Z88.1 Allergy status to other antibiotic agents; Z88.8 Allergy status to other drugs, medicaments and biological substances

== ENCOUNTER → 2017-08-28 | Outpatient (CLI) | payer OTHER | END | disposition home or self-care (01) | LOC: M PAIN 10:00 | PROVIDERS: ATTEND Nurse Practitioner Family | DX: G89.29 Other chronic pain (principal); M54.16 Radiculopathy, lumbar region; M96.1 Postlaminectomy syndrome, not elsewhere classified; G40.909 Epilepsy, unspecified, not intractable, without status epilepticus; E78.00 Pure hypercholesterolemia, unspecified; G43.909 Migraine, unspecified, not intractable, without status migrainosus; I10 Essential (primary) hypertension; I25.9 Chronic ischemic heart disease, unspecified; Z95.5 Presence of coronary angioplasty implant and graft; F33.9 Major depressive disorder, recurrent, unspecified; G47.33 Obstructive sleep apnea (adult) (pediatric); E55.9 Vitamin D deficiency, unspecified; Z79.899 Other long term (current) drug therapy; Z79.82 Long term (current) use of aspirin; Z79.891 Long term (current) use of opiate analgesic; Z88.8 Allergy status to other drugs, medicaments and biological substances; E73.9 Lactose intolerance, unspecified; Z91.041 Radiographic dye allergy status; Z87.891 Personal history of nicotine dependence ==

== ENCOUNTER → 2017-10-09 | Outpatient (CLI) | payer OTHER | LOC: M PAIN 10:00 | DX: G89.29 Other chronic pain (principal); M54.16 Radiculopathy, lumbar region; Z79.899 Other long term (current) drug therapy; M96.1 Postlaminectomy syndrome, not elsewhere classified; G40.909 Epilepsy, unspecified, not intractable, without status epilepticus; E78.00 Pure hypercholesterolemia, unspecified; G43.909 Migraine, unspecified, not intractable, without status migrainosus; I10 Essential (primary) hypertension; I25.10 Atherosclerotic heart disease of native coronary artery without angina pectoris; F32.9 Major depressive disorder, single episode, unspecified; G47.33 Obstructive sleep apnea (adult) (pediatric); E73.9 Lactose intolerance, unspecified; F41.1 Generalized anxiety disorder; E55.9 Vitamin D deficiency, unspecified; Z95.5 Presence of coronary angioplasty implant and graft; Z87.891 Personal history of nicotine dependence; Z79.82 Long term (current) use of aspirin; Z79.891 Long term (current) use of opiate analgesic; Z88.8 Allergy status to other drugs, medicaments and biological substances; Z91.041 Radiographic dye allergy status | CPT/HCPCS: G0463 ==

== ENCOUNTER → 2017-11-28 | Outpatient (CLI) | payer OTHER | LOC: M PAIN 10:15 | DX: G89.29 Other chronic pain (principal); M54.16 Radiculopathy, lumbar region; Z79.899 Other long term (current) drug therapy; M96.1 Postlaminectomy syndrome, not elsewhere classified; G40.909 Epilepsy, unspecified, not intractable, without status epilepticus; E78.00 Pure hypercholesterolemia, unspecified; G43.909 Migraine, unspecified, not intractable, without status migrainosus; I10 Essential (primary) hypertension; I25.10 Atherosclerotic heart disease of native coronary artery without angina pectoris; F32.9 Major depressive disorder, single episode, unspecified; G47.33 Obstructive sleep apnea (adult) (pediatric); F41.1 Generalized anxiety disorder; E55.9 Vitamin D deficiency, unspecified; F17.210 Nicotine dependence, cigarettes, uncomplicated; Z79.82 Long term (current) use of aspirin; Z79.891 Long term (current) use of opiate analgesic; Z91.041 Radiographic dye allergy status; Z88.8 Allergy status to other drugs, medicaments and biological substances | CPT/HCPCS: G0463 ==

== ENCOUNTER → 2018-02-18 | Outpatient (CLI) | payer OTHER | LOC: M PAIN 10:15 | DX: M96.1 Postlaminectomy syndrome, not elsewhere classified (principal); M54.16 Radiculopathy, lumbar region; R56.9 Unspecified convulsions; E78.00 Pure hypercholesterolemia, unspecified; G43.909 Migraine, unspecified, not intractable, without status migrainosus; I10 Essential (primary) hypertension; F32.9 Major depressive disorder, single episode, unspecified; F41.1 Generalized anxiety disorder; G47.33 Obstructive sleep apnea (adult) (pediatric); E73.9 Lactose intolerance, unspecified; F11.20 Opioid dependence, uncomplicated; Z79.82 Long term (current) use of aspirin; Z79.891 Long term (current) use of opiate analgesic; Z79.899 Other long term (current) drug therapy; Z88.8 Allergy status to other drugs, medicaments and biological substances; Z91.09 Other allergy status, other than to drugs and biological substances; Z91.041 Radiographic dye allergy status; Z86.79 Personal history of other diseases of the circulatory system; Z87.891 Personal history of nicotine dependence; Z95.5 Presence of coronary angioplasty implant and graft | CPT/HCPCS: G0463 ==

== ENCOUNTER → 2018-05-02 | Outpatient (REF) | payer OTHER ==
[2018-05-02 16:33] LABS: ALBUMIN 3.6 GM/DL (3.2-5.2); ALBUMIN/GLOBULIN RATIO 1.06 (1.00-1.93); ALKALINE PHOSPHATASE 153 U/L (45-117); ALT/SGPT 50 U/L (12-78); ANION GAP 9 MEQ/L (8-16); AST/SGOT 25 U/L (7-37); BILIRUBIN,TOTAL 0.2 MG/DL (0.2-1.0); BLOOD UREA NITROGEN 19 MG/DL (7-18); CALCIUM LEVEL 8.2 MG/DL (8.5-10.1); CARBON DIOXIDE LEVEL 29 MEQ/L (21-32); CHLORIDE LEVEL 105 MEQ/L (98-107); CHOLESTEROL LEVEL 144 MG/DL (<200); CHOLESTEROL RISK RATIO 1.734 (<5); CREATININE FOR GFR 1.39 MG/DL (0.55-1.30); GLOMERULAR FILTRATION RATE 42.9 (>58); GLUCOSE, FASTING 75 MG/DL (70-100); HDL CHOLESTEROL 83 MG/DL (>40); NON-HDL-C 61 MG/DL; POTASSIUM SERUM 3.9 MEQ/L (3.5-5.1); SODIUM LEVEL 143 MEQ/L (136-145); TRIGLYCERIDES LEVEL 100 MG/DL (<150)
== END ==
LOC: M SFHCPLAZ 13:47
DX: E78.5 Hyperlipidemia, unspecified (principal)

== ENCOUNTER → 2018-05-22 | Outpatient (CLI) | payer OTHER | LOC: M PAIN 14:15 | DX: M96.1 Postlaminectomy syndrome, not elsewhere classified (principal); M54.16 Radiculopathy, lumbar region; R56.9 Unspecified convulsions; E78.00 Pure hypercholesterolemia, unspecified; G43.909 Migraine, unspecified, not intractable, without status migrainosus; I10 Essential (primary) hypertension; F32.9 Major depressive disorder, single episode, unspecified; G47.33 Obstructive sleep apnea (adult) (pediatric); M15.0 Primary generalized (osteo)arthritis; E73.9 Lactose intolerance, unspecified; Z79.82 Long term (current) use of aspirin; Z79.891 Long term (current) use of opiate analgesic; Z79.899 Other long term (current) drug therapy; Z88.3 Allergy status to other anti-infective agents; Z88.8 Allergy status to other drugs, medicaments and biological substances; Z91.041 Radiographic dye allergy status; Z86.79 Personal history of other diseases of the circulatory system; Z87.891 Personal history of nicotine dependence | CPT/HCPCS: G0463 ==

== ENCOUNTER → 2018-07-02 | Outpatient (CLI) | payer OTHER ==
[2018-07-02 10:08] LABS: ANION GAP 9 MEQ/L (8-16); BLOOD UREA NITROGEN 28 MG/DL (7-18); CALCIUM LEVEL 8.8 MG/DL (8.5-10.1); CARBON DIOXIDE LEVEL 25 MEQ/L (21-32); CHLORIDE LEVEL 109 MEQ/L (98-107); CREATININE FOR GFR 0.93 MG/DL (0.55-1.30); GLOMERULAR FILTRATION RATE > 60.0 (>51); GLUCOSE, FASTING 81 MG/DL (70-100); POTASSIUM SERUM 4.3 MEQ/L (3.5-5.1); SODIUM LEVEL 143 MEQ/L (136-145)
== END ==
LOC: M LAB 09:10
DX: Z01.812 Encounter for preprocedural laboratory examination (principal); M65.322 Trigger finger, left index finger; Z79.899 Other long term (current) drug therapy
CPT/HCPCS: 80048

== ENCOUNTER → 2018-08-05 | Outpatient (CLI) | payer OTHER | LOC: M WHC 09:37 | DX: Z12.31 Encounter for screening mammogram for malignant neoplasm of breast (principal) | CPT/HCPCS: 77067 ==

== ENCOUNTER → 2018-08-05 | Outpatient (REF) | payer OTHER ==
[2018-08-07 14:15] LABS: HPV HYBRID CAPTURE II Positive (Negative)
== END ==
LOC: M SFHCWAGY 10:24
DX: N93.9 Abnormal uterine and vaginal bleeding, unspecified (principal)

== ENCOUNTER → 2018-08-07 | Outpatient (CLI) | payer OTHER | LOC: M PAIN 11:45 | DX: M96.1 Postlaminectomy syndrome, not elsewhere classified (principal); M54.16 Radiculopathy, lumbar region; G40.909 Epilepsy, unspecified, not intractable, without status epilepticus; E78.00 Pure hypercholesterolemia, unspecified; I10 Essential (primary) hypertension; G43.909 Migraine, unspecified, not intractable, without status migrainosus; I25.10 Atherosclerotic heart disease of native coronary artery without angina pectoris; F32.9 Major depressive disorder, single episode, unspecified; G47.33 Obstructive sleep apnea (adult) (pediatric); F41.1 Generalized anxiety disorder; E55.9 Vitamin D deficiency, unspecified; Z87.891 Personal history of nicotine dependence; Z79.82 Long term (current) use of aspirin; Z79.891 Long term (current) use of opiate analgesic; Z91.041 Radiographic dye allergy status; Z79.899 Other long term (current) drug therapy; Z88.8 Allergy status to other drugs, medicaments and biological substances; Z91.048 Other nonmedicinal substance allergy status | CPT/HCPCS: G0463 ==

== ENCOUNTER → 2018-11-07 | Outpatient (CLI) | payer OTHER ==
[~2018-11-07] MED LIST changes: -LASI40TA PO; +LASI40TA9 PO
--- NOTE | 2018-11-25 02:40 | ECWPNPC ---
PATIENT NAME: ANGELA POLO : 1970 GENDER: FEMALE VISIT DATE: 11/07/2018 DISCHARGE DATE: 11/07/18 1014 VISIT LOCKED DATE TIME: PHYSICIAN: ISABELL LOGAN RESOURCE: ISABELL LOGAN DISCLAIMER : THIS IS A VISIT SUMMARY EXTRACTED FROM THE [facility] CHART. IT IS NOT A COPY OF THE [employer] PROGRESS NOTE. MTDD
== END ==
LOC: M PAIN 09:15
PROVIDERS: ATTEND Nurse Practitioner Family
DX: M54.5 Low back pain (principal); G89.29 Other chronic pain; R56.9 Unspecified convulsions; E78.00 Pure hypercholesterolemia, unspecified; G43.909 Migraine, unspecified, not intractable, without status migrainosus; I10 Essential (primary) hypertension; F32.9 Major depressive disorder, single episode, unspecified; G47.33 Obstructive sleep apnea (adult) (pediatric); F41.1 Generalized anxiety disorder; E73.9 Lactose intolerance, unspecified; Z79.82 Long term (current) use of aspirin; Z79.891 Long term (current) use of opiate analgesic; Z79.899 Other long term (current) drug therapy; Z88.8 Allergy status to other drugs, medicaments and biological substances; Z91.09 Other allergy status, other than to drugs and biological substances; Z91.041 Radiographic dye allergy status; Z86.79 Personal history of other diseases of the circulatory system

== ENCOUNTER → 2019-02-05 | Outpatient (CLI) | payer OTHER ==
[~2019-02-05] MED LIST changes: -/BACL20TA; -/BACL20TA OR; +BACL1TAB9; +BACL1TAB9 OR; +CRES10TA32; +CRES10TA32 OR; -ROSU10TA; -ROSU10TA OR
--- NOTE | 2019-02-19 02:20 | ECWPNPC ---
PATIENT NAME: ANGELA POLO : 1970 GENDER: FEMALE VISIT DATE: 02/05/2019 DISCHARGE DATE: 02/05/19 1043 VISIT LOCKED DATE TIME: PHYSICIAN: ISABELL LOGAN RESOURCE: ISABELL LOGAN DISCLAIMER : THIS IS A VISIT SUMMARY EXTRACTED FROM THE [facility] CHART. IT IS NOT A COPY OF THE [employer] PROGRESS NOTE. MTDD
== END ==
LOC: M PAIN 09:30
PROVIDERS: ATTEND Nurse Practitioner Family
DX: M54.16 Radiculopathy, lumbar region (principal); G89.29 Other chronic pain; G40.919 Epilepsy, unspecified, intractable, without status epilepticus; E78.00 Pure hypercholesterolemia, unspecified; G43.909 Migraine, unspecified, not intractable, without status migrainosus; I10 Essential (primary) hypertension; Z86.59 Personal history of other mental and behavioral disorders; G47.33 Obstructive sleep apnea (adult) (pediatric); Z95.5 Presence of coronary angioplasty implant and graft; Z87.891 Personal history of nicotine dependence; Z88.1 Allergy status to other antibiotic agents; Z88.8 Allergy status to other drugs, medicaments and biological substances; Z91.011 Allergy to milk products; Z91.041 Radiographic dye allergy status; Z79.01 Long term (current) use of anticoagulants; Z79.891 Long term (current) use of opiate analgesic; Z79.899 Other long term (current) drug therapy

== ENCOUNTER → 2019-05-07 | Outpatient (CLI) | payer OTHER ==
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
== END ==
LOC: M PAIN 09:45
PROVIDERS: ATTEND Nurse Practitioner Family
DX: G89.29 Other chronic pain (principal); G40.909 Epilepsy, unspecified, not intractable, without status epilepticus; G43.909 Migraine, unspecified, not intractable, without status migrainosus; I10 Essential (primary) hypertension; I25.10 Atherosclerotic heart disease of native coronary artery without angina pectoris; Z95.5 Presence of coronary angioplasty implant and graft; F32.9 Major depressive disorder, single episode, unspecified; G47.33 Obstructive sleep apnea (adult) (pediatric); F41.1 Generalized anxiety disorder; E55.9 Vitamin D deficiency, unspecified; Z87.891 Personal history of nicotine dependence; Z79.82 Long term (current) use of aspirin; Z79.899 Other long term (current) drug therapy; Z91.041 Radiographic dye allergy status; Z88.8 Allergy status to other drugs, medicaments and biological substances

== ENCOUNTER → 2019-08-06 | Outpatient (REF) | payer OTHER ==
[2019-08-08 14:07] LABS: HPV HYBRID CAPTURE II Negative (Negative)
== END ==
LOC: M SFHCWAGY 13:32
PROVIDERS: ATTEND Nurse Practitioner Women's Health
DX: Z12.4 Encounter for screening for malignant neoplasm of cervix (principal); R87.810 Cervical high risk human papillomavirus (HPV) DNA test positive

== ENCOUNTER → 2019-08-06 | Outpatient (CLI) | payer OTHER ==
--- NOTE | 2019-08-06 14:36 | REPMRS ---
Patient History The patient states she had a clinical breast exam in 07/2019. Family history of breast cancer under age 50 in mother, pancreatic cancer at age 50 or over in maternal grandmother. No Hormone Replacement Therapy 3D TOMOSYNTHESIS WAS PERFORMED. The [facility] lifetime risk for breast cancer is 13.7%. Digital Woman Screen Mammo: August 06, 2019 - Exam #: [id number] Bilateral CC and MLO view(s) were taken. Technologist: Marisa Boucher, Technologist Prior study comparison: August 05, 2018, bilateral digital woman screen mammo performed at [facility]. FINDINGS: The breast tissue is heterogeneously dense. This may lower the sensitivity of mammography. There has been no change in the appearance of the mammogram from the prior studies. There is a moderate amount of residual fibroglandular tissue which is fairly symmetric. There is no interval development of dominant mass, areas of architectural distortion, or clustered microcalcification typical of malignancy. Assessment: BI-RADS/ACR category 1 mammogram. Negative Mammogram. Recommendation Routine screening mammogram in 1 year (for women over age 40). This mammogram was interpreted with the aid of an FDA-approved computer-aided dectection system. Electronically Signed By: Marc Johansen MD 08/06/19 [id number]
== END ==
LOC: M WHC 13:18
PROVIDERS: ATTEND Nurse Practitioner Women's Health
DX: Z12.31 Encounter for screening mammogram for malignant neoplasm of breast (principal); Z80.3 Family history of malignant neoplasm of breast

== ENCOUNTER → 2019-08-11 | Outpatient (CLI) | payer OTHER | LOC: M PAIN 10:30 | PROVIDERS: ATTEND Nurse Practitioner Family | DX: G89.29 Other chronic pain (principal); G40.909 Epilepsy, unspecified, not intractable, without status epilepticus; E78.00 Pure hypercholesterolemia, unspecified; G43.909 Migraine, unspecified, not intractable, without status migrainosus; I10 Essential (primary) hypertension; Z86.59 Personal history of other mental and behavioral disorders; G47.33 Obstructive sleep apnea (adult) (pediatric); Z87.891 Personal history of nicotine dependence; Z88.1 Allergy status to other antibiotic agents; Z88.6 Allergy status to analgesic agent; Z91.011 Allergy to milk products; Z91.041 Radiographic dye allergy status; Z91.09 Other allergy status, other than to drugs and biological substances; Z79.891 Long term (current) use of opiate analgesic; Z79.82 Long term (current) use of aspirin; Z79.899 Other long term (current) drug therapy ==

== ENCOUNTER → 2019-08-13 | Outpatient (REF) | payer OTHER ==
[2019-08-13 15:58] LABS: HEMATOCRIT 40.6 % (36.0-47.0); HEMOGLOBIN 12.7 g/dl (12.0-15.5); MEAN CORPUSCULAR HEMOGLOBIN 28.5 pg (27.0-33.0); MEAN CORPUSCULAR HGB CONC 31.3 g/dl (32.0-36.5); MEAN CORPUSCULAR VOLUME 91.2 fl (80.0-96.0); PLATELET COUNT, AUTOMATED 286 10^3/uL (150-450); RED BLOOD COUNT 4.45 10^6/uL (4.00-5.40); WHITE BLOOD COUNT 6.9 10^3/uL (4.0-10.0)
[2019-08-13 16:11] LABS: ALBUMIN 3.5 GM/DL (3.2-5.2); ALT/SGPT 27 U/L (12-78); BILIRUBIN,TOTAL 0.3 MG/DL (0.2-1.0); BLOOD UREA NITROGEN 11 MG/DL (7-18); CARBON DIOXIDE LEVEL 32 MEQ/L (21-32); CHLORIDE LEVEL 105 MEQ/L (98-107); CHOLESTEROL LEVEL 157 MG/DL (<200); CHOLESTEROL RISK RATIO 1.891 (<5); CREATININE FOR GFR 0.94 MG/DL (0.55-1.30); FREE T4 0.85 NG/DL (0.76-1.46); GLOMERULAR FILTRATION RATE > 60.0 (>51); GLUCOSE, FASTING 86 MG/DL (70-100); HDL CHOLESTEROL 83 MG/DL (>40); LDL CHOLESTEROL 58 MG/DL (<100); NON-HDL-C 74 MG/DL; PHENYTOIN (DILANTIN) 17.6 UG/ML (10.0-20.0); POTASSIUM SERUM 4.2 MEQ/L (3.5-5.1); SODIUM LEVEL 141 MEQ/L (136-145); THYROID STIMULATING HORMONE 0.646 uIU/ML (0.358-3.740); TOTAL PROTEIN 6.8 GM/DL (6.4-8.2); TRIGLYCERIDES LEVEL 78 MG/DL (<150)
[2019-08-13 17:05] LABS: HEMOGLOBIN A1c 5.7 %
== END ==
LOC: M SFHCPLAZ 13:47
DX: Z00.00 Encounter for general adult medical examination without abnormal findings (principal); G40.401 Other generalized epilepsy and epileptic syndromes, not intractable, with status epilepticus

== ENCOUNTER → 2019-11-11 | Outpatient (CLI) | payer OTHER ==
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
== END ==
LOC: M PAIN 10:30
PROVIDERS: ATTEND Nurse Practitioner Family
DX: M54.5 Low back pain (principal); G89.29 Other chronic pain; G40.909 Epilepsy, unspecified, not intractable, without status epilepticus; E78.00 Pure hypercholesterolemia, unspecified; G43.909 Migraine, unspecified, not intractable, without status migrainosus; I10 Essential (primary) hypertension; Z86.59 Personal history of other mental and behavioral disorders; G47.33 Obstructive sleep apnea (adult) (pediatric); Z87.891 Personal history of nicotine dependence; Z88.1 Allergy status to other antibiotic agents; Z88.6 Allergy status to analgesic agent; Z91.011 Allergy to milk products; Z91.041 Radiographic dye allergy status; Z79.82 Long term (current) use of aspirin; Z79.891 Long term (current) use of opiate analgesic; Z79.899 Other long term (current) drug therapy

== ENCOUNTER → 2020-02-10 | Outpatient (CLI) | payer OTHER ==
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
== END ==
LOC: M PAIN 10:15
PROVIDERS: ATTEND Nurse Practitioner Family
DX: G89.29 Other chronic pain (principal); Z79.899 Other long term (current) drug therapy

== ENCOUNTER → 2020-05-11 | Outpatient (CLI) | payer OTHER ==
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
== END ==
LOC: M PAIN 11:00
PROVIDERS: ATTEND Nurse Practitioner Family
DX: M96.1 Postlaminectomy syndrome, not elsewhere classified (principal); Z79.899 Other long term (current) drug therapy

== ENCOUNTER → 2020-08-11 | Outpatient (CLI) | payer OTHER ==
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
== END ==
LOC: M PAIN 11:00
PROVIDERS: ATTEND Nurse Practitioner Family
DX: M96.1 Postlaminectomy syndrome, not elsewhere classified (principal); G40.909 Epilepsy, unspecified, not intractable, without status epilepticus; G43.909 Migraine, unspecified, not intractable, without status migrainosus; I10 Essential (primary) hypertension; G47.33 Obstructive sleep apnea (adult) (pediatric); F17.290 Nicotine dependence, other tobacco product, uncomplicated; Z86.59 Personal history of other mental and behavioral disorders; Z95.5 Presence of coronary angioplasty implant and graft; Z88.6 Allergy status to analgesic agent; Z88.8 Allergy status to other drugs, medicaments and biological substances; Z91.011 Allergy to milk products; Z91.041 Radiographic dye allergy status; Z79.82 Long term (current) use of aspirin; Z79.891 Long term (current) use of opiate analgesic; Z79.899 Other long term (current) drug therapy

== ENCOUNTER 2020-09-12 09:49 | Emergency (ER) | payer OTHER ==
[~2020-09-12] VITALS: Ht 157.5 cm; Wt 63.6 kg
--- NOTE | 2020-09-12 10:28 | ECGEPIP ---
[facility] - ED Test Date: 2020-09-12 Pat Name: ANGELA POLO Department: Room: - Gender: Female Equip Tech: : 1970 Requested By: MAKENZIE Phelps Order Number: [id number] Reading MD: Edilson Cabrera Measurements Intervals [place] Rate: 48 P: 55 PA: 199 QRS: 35 QRSD: 186 T: 14 QT: 467 QTc: 418 Interpretive Statements SINUS BRADYCARDIA RIGHT BUNDLE BRANCH BLOCK NO PRIORS FOR COMPARISON Electronically Signed on 09-12-2020 10:27:55 EST by Edilson Cabrera
[2020-09-12 10:44] LABS: BASO % 0.8 % (0.0-1.0); EOS # 0.2 10^3/uL (0.0-0.5); EOS % 4.6 % (0.0-3.0); HEMATOCRIT 39.6 % (36.0-47.0); HEMOGLOBIN 12.2 g/dl (12.0-15.5); LYMPH # 2.2 10^3/uL (1.5-5.0); MEAN CORPUSCULAR HEMOGLOBIN 29.1 pg (27.0-33.0); MEAN CORPUSCULAR HGB CONC 30.8 g/dl (32.0-36.5); MEAN CORPUSCULAR VOLUME 94.5 fl (80.0-96.0); MONO # 0.4 10^3/uL (0.0-0.8); MONO % 8.4 % (0.0-5.0); NEUTROPHILS % 40.8 % (36.0-66.0); PLATELET COUNT, AUTOMATED 208 10^3/uL (150-450); RED BLOOD COUNT 4.19 10^6/uL (4.00-5.40)
[2020-09-12] MEDS ORDERED: NITROGLYCERIN 0.3 MG SUBL TAB SL STA (10:59)
--- NOTE | 2020-09-12 11:03 | REP ---
INDICATION: DYSPNEA/COUGH. COMPARISON: 02/24/2016. TECHNIQUE: SINGLE PORTABLE AP VIEW OF THE CHEST WAS PERFORMED. FINDINGS: THERE IS NO ACUTE INFILTRATE OR PULMONARY EDEMA. LUNGS ARE CLEAR. HEART IS NOT SIGNIFICANTLY ENLARGED. MEDIASTINAL SILHOUETTE IS UNREMARKABLE. THE VISUALIZED OSSEOUS STRUCTURES ARE INTACT. IMPRESSION: NO ACUTE PULMONARY DISEASE. <Electronically signed by Marc Johansen > 09/12/20 [id number]
[2020-09-12 11:12] LABS: ALBUMIN 3.4 GM/DL (3.2-5.2); ALT/SGPT 15 U/L (12-78); BILIRUBIN,DIRECT < 0.1 MG/DL (0.0-0.2); BILIRUBIN,TOTAL 0.3 MG/DL (0.2-1.0); BLOOD UREA NITROGEN 17 MG/DL (7-18); CALCIUM LEVEL 8.6 MG/DL (8.5-10.1); CARBON DIOXIDE LEVEL 28 MEQ/L (21-32); CHLORIDE LEVEL 106 MEQ/L (98-107); CREATININE FOR GFR 0.91 MG/DL (0.55-1.30); GLOMERULAR FILTRATION RATE > 60.0 (>51); GLUCOSE, FASTING 69 MG/DL (70-100); POTASSIUM SERUM 4.2 MEQ/L (3.5-5.1); SODIUM LEVEL 139 MEQ/L (136-145); THYROXINE (T4) 5.1 UG/DL (4.5-12.0); TOTAL PROTEIN 6.2 GM/DL (6.4-8.2)
[2020-09-12] MEDS ORDERED: NITROGLYCERIN 0.4 MG SUBL TABLET As Ordered ONE (11:28)
[2020-09-12 11:30] VITALS: BP 179/87
[2020-09-12] MEDS ORDERED: NITROGLYCERIN 0.4 MG SUBL TABLET SL PRN (11:30)
[2020-09-12 12:04] LABS: INR 0.99; PROTHROMBIN TIME 13.3 SECONDS (12.5-14.3)
[2020-09-12 12:05] LABS: PARTIAL THROMBOPLASTIN TIME 29.4 SECONDS (24.2-38.5)
[2020-09-12] MEDS ORDERED: MELO7.5T35 PO (12:28)
[2020-09-12] MEDS ORDERED: ESTR0.03 TOP (12:28)
[2020-09-12] MEDS ORDERED: TRAZ-252 PO (12:28)
[2020-09-12] MEDS ORDERED: CETI-24 PO (12:28)
[2020-09-12 12:30] LABS: ERYTHROCYTE SEDIMENTATION RATE 6 mm/hr (0-30)
[2020-09-12 12:41] LABS: C REACTIVE PROTEIN QUANTITATIV < 0.30 MG/DL (0.00-0.30); NT-PRO BNP 179 PG/ML (<125)
--- NOTE | 2020-09-12 13:15 | REP ---
INDICATION: chest discomfort/sob. COMPARISON: None. TECHNIQUE: CT chest performed without the use of intravenous contrast. Sagittal and coronal reconstruction images are performed. FINDINGS: Lungs: Clear, no infiltrate or nodule. There is minimal left upper lobe fibrotic change anteriorly. Mediastinum: No gross adenopathy. Pia: No gross adenopathy. Axilla: No gross adenopathy. Pleura: No effusion. Heart: Not enlarged. Thoracic aorta: No aneurysm. There are scattered atherosclerotic calcifications. Upper abdominal structures: Grossly unremarkable. There is a left renal cyst. Visualized osseous structures: There are degenerative changes of the spine without compression deformity.. IMPRESSION: Unremarkable noncontrast CT chest. <Electronically signed by Marc Johansen > 09/12/20 [id number]
[2020-09-12] MEDS ORDERED: SUCR1TA PO (15:30)
[2020-09-12] MEDS ORDERED: PRIL20TA2 PO (15:31)
[2020-09-12 15:54] VITALS: BP 168/78
--- NOTE | 2020-09-13 | ECGEPIP ---
[facility] - ED Test Date: 2020-09-12 Pat Name: ANGELA POLO Department: Room: - Gender: Female [employer] Operator: VIVI : 1970 Requested By: MAKENZIE Phelps Order Number: [id number] Reading MD: Edilson Cabrera Measurements Intervals [place] Rate: 46 P: 54 MA: 228 QRS: 2 QRSD: 163 T: 1 QT: 480 QTc: 421 Interpretive Statements SINUS BRADYCARDIA WITH FIRST DEGREE AV BLOCK RIGHT BUNDLE BRANCH BLOCK SIMILAR TO PRIOR ON SAME DATE Electronically Signed on 09-12-2020 23:59:54 EST by Edilson Cabrera
== END 2020-09-12 15:56 | disposition home or self-care (01) ==
LOC: M ED 09:49
DX: R07.89 Other chest pain (principal); R00.1 Bradycardia, unspecified; I45.10 Unspecified right bundle-branch block; I11.0 Hypertensive heart disease with heart failure; I25.10 Atherosclerotic heart disease of native coronary artery without angina pectoris; G43.909 Migraine, unspecified, not intractable, without status migrainosus; G47.33 Obstructive sleep apnea (adult) (pediatric); Z88.8 Allergy status to other drugs, medicaments and biological substances; Z91.041 Radiographic dye allergy status; Z79.82 Long term (current) use of aspirin; Z79.899 Other long term (current) drug therapy

== ENCOUNTER → 2020-12-23 | Outpatient (CLI) | payer OTHER ==
[~2020-12-23] MED LIST changes: +CETI-24 PO; +ESTR0.03 TOP; +MELO7.5T35 PO; +PRIL20TA2 PO; +SUCR1TA PO; +TRAZ-252 PO
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
== END ==
LOC: M PAIN 11:00
PROVIDERS: ATTEND Nurse Practitioner Family
DX: M96.1 Postlaminectomy syndrome, not elsewhere classified (principal); G40.909 Epilepsy, unspecified, not intractable, without status epilepticus; G43.909 Migraine, unspecified, not intractable, without status migrainosus; G47.33 Obstructive sleep apnea (adult) (pediatric); F17.290 Nicotine dependence, other tobacco product, uncomplicated; Z86.59 Personal history of other mental and behavioral disorders; Z88.6 Allergy status to analgesic agent; Z88.8 Allergy status to other drugs, medicaments and biological substances; Z91.011 Allergy to milk products; Z91.041 Radiographic dye allergy status; Z79.82 Long term (current) use of aspirin; Z79.891 Long term (current) use of opiate analgesic; Z79.899 Other long term (current) drug therapy

== ENCOUNTER → 2021-04-24 | Outpatient (CLI) | payer OTHER ==
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
== END ==
LOC: M PAIN 13:30
PROVIDERS: ATTEND Nurse Practitioner Family
DX: M96.1 Postlaminectomy syndrome, not elsewhere classified (principal); G40.909 Epilepsy, unspecified, not intractable, without status epilepticus; E78.00 Pure hypercholesterolemia, unspecified; G43.909 Migraine, unspecified, not intractable, without status migrainosus; I10 Essential (primary) hypertension; I25.10 Atherosclerotic heart disease of native coronary artery without angina pectoris; G47.33 Obstructive sleep apnea (adult) (pediatric); F41.1 Generalized anxiety disorder; F32.9 Major depressive disorder, single episode, unspecified; E55.9 Vitamin D deficiency, unspecified; Z95.5 Presence of coronary angioplasty implant and graft; E73.9 Lactose intolerance, unspecified; Z87.891 Personal history of nicotine dependence; Z79.82 Long term (current) use of aspirin; Z79.891 Long term (current) use of opiate analgesic; Z79.1 Long term (current) use of non-steroidal anti-inflammatories (NSAID); Z79.899 Other long term (current) drug therapy; Z88.8 Allergy status to other drugs, medicaments and biological substances; Z91.041 Radiographic dye allergy status

== ENCOUNTER 2021-06-24 09:56 | Emergency (ER) | payer OTHER ==
[~2021-06-24] VITALS: Ht 157.5 cm; Wt 68.2 kg
--- NOTE | 2021-06-24 11:33 | REP ---
INDICATION: pain and swelling after a fall COMPARISON: None. TECHNIQUE: AP, lateral, bilateral oblique views right foot. FINDINGS: Fractures at the base of the 2nd (and possibly 3rd, 4th) metatarsal bone. Small corner chip fracture of the medial cuneiform at the tarsometatarsal joint is suspected on oblique view. IMPRESSION: Fractures as noted above. <Electronically signed by Pop Cooney > 06/24/21 [id number]
[2021-06-24 12:57] VITALS: BP 177/90
== END 2021-06-24 12:58 | disposition home or self-care (01) ==
LOC: M ED 09:56
DX: S92.324A Nondisplaced fracture of second metatarsal bone, right foot, initial encounter for closed fracture (principal); W01.0XXA Fall on same level from slipping, tripping and stumbling without subsequent striking against object, initial encounter; Y92.009 Unspecified place in unspecified non-institutional (private) residence as the place of occurrence of the external cause; Y93.9 Activity, unspecified; Y99.9 Unspecified external cause status; Z79.899 Other long term (current) drug therapy

== ENCOUNTER → 2021-07-07 | Outpatient (CLI) | payer OTHER ==
--- NOTE | 2021-07-07 11:29 | REP ---
INDICATION: FOOT FX. COMPARISON: Comparison radiographs are from June 24, 2021. TECHNIQUE: Helical scanning is acquired and 2 mm axial images are generated. Coronal and sagittal MPR images are provided. FINDINGS: CT study confirms the presence of a Lisfranc joint fracture injury with intra-articular fractures involving the 2nd, 3rd, and 4th proximal metatarsals. The 5th proximal metatarsal is intact. There is a chip fracture which is apparently from the medial edge of the medial cuneiform at the 1st MTP joint. The 1st metatarsal appears intact. The MTP joints are normally aligned. The proximal 3rd metatarsal and to a lesser extent, the proximal 2nd metatarsal fractures are somewhat diastatic and there is slight comminution in the proximal 2nd and proximal 4th metatarsal fractures. There is a small os perineum. There are 3 or 4 tiny bone densities in the soft tissues at the medial aspect of the hindfoot medial to the distal talus. These are of uncertain significance. I do not see a donor site. The may be small accessory ossicles adjacent to the talo- navicular articulation.. There are plantar and Achilles calcaneal spurs. No ankle fracture is seen. IMPRESSION: Traumatic injury of the Lisfranc joint with intra-articular fractures of proximal metatarsals 2 through 4 and a chip fracture at the 1st MTT articulation. Heel spurs. <Electronically signed by Bebo Taylor > 07/07/21 [id number]
== END ==
LOC: M RAD 10:10
PROVIDERS: ATTEND Physician Assistant
DX: S92.324D Nondisplaced fracture of second metatarsal bone, right foot, subsequent encounter for fracture with routine healing (principal)

== ENCOUNTER 2021-07-30 19:52 | Emergency (ER) | payer OTHER ==
[~2021-07-30] VITALS: Ht 157.5 cm; Wt 77.3 kg
[2021-07-30] MEDS ORDERED: diphenhydrAMINE 50MG CAP PO ONE (20:45)
[2021-07-30] MEDS ORDERED: predniSONE 20 MG TAB PO ONE (20:45)
[2021-07-30] MEDS ORDERED: FAMOTIDINE 20 MG TAB PO ONE (20:45)
[2021-07-30] MEDS ORDERED: BENA25CA4 PO (22:08)
[2021-07-30] MEDS ORDERED: FAMO20TA PO (22:08)
[2021-07-30] MEDS ORDERED: PRED20TA PO (22:08)
[2021-07-30 22:17] VITALS: BP 130/68
== END 2021-07-30 22:19 | disposition home or self-care (01) ==
LOC: M ED 19:52
DX: T63.441A Toxic effect of venom of bees, accidental (unintentional), initial encounter (principal); R22.32 Localized swelling, mass and lump, left upper limb; I11.0 Hypertensive heart disease with heart failure; E78.5 Hyperlipidemia, unspecified; R56.9 Unspecified convulsions; G43.909 Migraine, unspecified, not intractable, without status migrainosus; M54.50 Low back pain, unspecified; F41.9 Anxiety disorder, unspecified; F32.9 Major depressive disorder, single episode, unspecified; F17.200 Nicotine dependence, unspecified, uncomplicated; Z88.8 Allergy status to other drugs, medicaments and biological substances; Z91.041 Radiographic dye allergy status; Z79.899 Other long term (current) drug therapy
CPT/HCPCS: 99283; J7512

== ENCOUNTER → 2021-08-25 | Outpatient (CLI) | payer OTHER ==
[~2021-08-25] MED LIST changes: +BENA25CA4 PO; +FAMO20TA PO; +PRED20TA PO
== END ==
LOC: M PAIN 11:30
PROVIDERS: ATTEND Anesthesiology
DX: M54.16 Radiculopathy, lumbar region (principal); G89.29 Other chronic pain; G40.909 Epilepsy, unspecified, not intractable, without status epilepticus; G43.909 Migraine, unspecified, not intractable, without status migrainosus; G47.33 Obstructive sleep apnea (adult) (pediatric); Z86.59 Personal history of other mental and behavioral disorders; Z87.891 Personal history of nicotine dependence; Z88.6 Allergy status to analgesic agent; Z88.8 Allergy status to other drugs, medicaments and biological substances; Z91.011 Allergy to milk products; Z91.041 Radiographic dye allergy status; Z79.82 Long term (current) use of aspirin; Z79.891 Long term (current) use of opiate analgesic; Z79.899 Other long term (current) drug therapy

== ENCOUNTER → 2021-09-07 | Outpatient (REF) ==
[2021-09-07 11:43] LABS: RSV AMPLIFICATION NEGATIVE (NEGATIVE)
== END ==
LOC: M LAB 10:02